=== PATIENT | female | born 1975 | race Caucasian/White ===

== ENCOUNTER 2018-04-10 17:59 | Emergency (ER) | payer MEDICAID ==
[2018-04-10] MEDS ORDERED: 0.9 % SODIUM CHLORIDE 1,000 ML BAG IV ONE ×2 (19:14→20:05)
[2018-04-10] MEDS ORDERED: LORAZEPAM 2 MG/ML VIAL IV ONE (19:14)
--- NOTE | 2018-04-10 19:15 | Emergency Department Record ---
Anxiety - General Chief Complaint: Anxiety Stated Complaint: ANXIETY Time Seen by Provider: 04/10/18 19:06 Source: Patient, Family Mode of Arrival: Ambulatory Limitations: No limitations - History of Present Illness Initial Comments: 43 yo female presents after a anxiety attack. She states she is under severe stress with family issues. She has an anxiety attack today. Her heart races, she gets light headed and thinks she could have passed out or had a seizure. This happens some times with anxiety attacks. No injury. Did not bite tongue. She has been on numerous seizure mediations in the past. No other recent changes in her health. Most of her seizures or syncope occur with stress in her life. MD Complaint: Anxiety Onset/Timin -: Minutes(s) Symptoms: Extremity numbness/tingling, Palpitations Place: Home Previous History of Same: Yes Severity: Moderate Quality: Intermittant Improves With: Nothing Associated symptoms: Other - Related Data Allergies/Adverse Reactions: Allergies Allergy/AdvReac Type Severity Reaction Status Date / Time adhesive tape Allergy Intermediate RASH Verified 04/10/18 18:11 divalproex sodium Allergy Intermediate HYPERSENSIT Verified 04/10/18 18:11 [From Depakote] IVITY phenytoin sodium Allergy Intermediate HIVES Verified 04/10/18 18:11 [From Dilantin] phenytoin sodium extended Allergy Intermediate HIVES Verified 04/10/18 18:11 [From Dilantin] Travel Screening - Travel/Exposure Within Last 30 Days Have you traveled within the last 30 days?: No - Travel/Exposure Within Last Year Have you traveled outside the [place] in the last year?: No - Additonal Travel Details Have you been exposed to anyone with a communicable illness?: No - Travel Symptoms Symptom Screening: None Review of Systems Constitutional: Denies: Chills, Fever, Night sweats, Weakness Eyes: Denies: Eye discharge ENT: Denies: Congestion, Throat pain Respiratory: Denies: Cough, Dyspnea, Hemoptysis, Wheezes Cardiovascular: Reports: Syncope. Denies: Chest pain, Palpitations Endocrine: Denies: Fatigue, Polydipsia, Polyuria Gastrointestinal: Denies: Abdominal pain, Diarrhea, Nausea, Vomiting Genitourinary: Denies: Dysuria, Urgency Musculoskeletal: Denies: Arthralgia, Back pain, Joint swelling, Myalgia, Neck pain Skin: Denies: Bruising, Change in color, Rash Neurological: Reports: As per HPI, Seizure. Denies: Headache, Numbness, Vertigo , Weakness Psychiatric: Reports: As per HPI, Anxiety Hematological/Lymphatic: Denies: Blood Clots, Easy bleeding, Easy bruising, Swollen glands Past Medical History - SOCIAL HISTORY Smoking Status: Light tobacco smoker (<10/day) Alcohol Use: None Drug Use: None - RESPIRATORY Hx Respiratory Disorders: No - CARDIOVASCULAR Hx Cardio Disorders: Yes Hx Hypertension: Yes - NEURO Hx Neuro Disorders: Yes Hx Dizziness: Yes Hx Headaches: Yes Hx Seizures: Yes (Petit-mal) Comment:: chronic siezures - GI Hx GI Disorders: No - Hx Genitourinary Disorders: No Comment:: hysterectomy 2008 ?renal failure - ENDOCRINE Hx Endocrine Disorders: No Hx Diabetes: No Hx Thyroid Disease: No - MUSCULOSKELETAL Hx Musculoskeletal Disorders: Yes Hx Arthritis: Yes Comment:: "messed up both shoulders and her back" - PSYCH Hx Psych Problems: Yes Hx Anxiety: Yes Hx Depression: Yes - HEMATOLOGY/ONCOLOGY Hx Hematology/Oncology Disorders: Yes Hx Blood Transfusions: Yes Hx Blood Transfusion Reaction: No Comment:: After hysterectomy Family Medical History Any Significant Family History?: Yes Hx Alcohol Use: Father, Grandparents Hx Cancer: Father Hx Diabetes: Father Hx Heart Disease: Father Hx HTN: Father Hx Kidney Disease: Grandparents Hx Resp Disorders: Mother Physical Exam - General General Appearance: Alert, Oriented x3, Cooperative, No acute distress, Other ( calm, conversational) Limitations: No limitations - Head Head exam: Normal inspection - Eye Eye exam: Normal appearance, PERRL, EOMI. negative: Conjunctival injection, Scleral icterus - ENT ENT exam: Normal exam, Mucous membranes moist Ear exam: Normal external inspection Nasal Exam: Normal inspection Mouth exam: Normal external inspection, Tongue normal. negative: Laceration Teeth exam: Normal inspection - Neck Neck exam: Normal inspection, Full ROM. negative: Tenderness - Respiratory Respiratory exam: Normal lung sounds bilaterally. negative: Respiratory distress - Cardiovascular Cardiovascular Exam: Regular rate, Normal rhythm, Normal heart sounds Peripheral Pulses: 2+: Radial (R), Radial (L) - GI/Abdominal GI/Abdominal exam: Soft. negative: Tenderness - Rectal Rectal exam: Deferred - exam: Deferred - Extremities Extremities exam: Normal inspection, Full ROM, Normal capillary refill. negative: Tenderness - Back Back exam: Denies: CVA tenderness (R), CVA tenderness (L) - Neurological Neurological exam: Alert, Normal gait, Oriented X3. negative: Altered - Psychiatric Psychiatric exam: Normal affect, Normal mood. negative: Agitated, Anxious, Depressed, Flat affect, Homicidal ideation, Suicidal ideation - Skin Skin exam: Dry, Intact, Normal color, Warm Course Vital Signs 04/10/18 18:02 Temperature 99.1 F Pulse Rate 116 H Respiratory 18 Rate Blood Pressure 121/89 Pulse Ox 95 - Reevaluation(s) Reevaluation #1: The labs were reviewed The CBC demonstrated WBC of 13 The K is 3.3 The HCO3 is 16 BUN is 29 She is doing well, IVF infusing She will be given K and 2 liters of fluids based on the labs EKG #1: 1941 Rate: 82 Rhythm: NSR Morrill: Normal Intervals: Normal ST segments: No acut changes Prior: No changes 02/25/17 04/10/18 21:20 The patient is doing very well after the second liter of IVF. We have discussed at length her anxiety and a follow up plan for mental health care She will be referred to the [facility] Behavioral health team Medical Decision Making - Lab Data Result diagrams: 04/10/18 17:46 04/10/18 17:46 Disposition Disposition: Discharge Clinical Impression: Anxiety, Hypokalemia Disposition: Home, Self-Care Condition: (1) Good Instructions: Generalized Anxiety Disorder (ED) Additional Instructions: Call the number provided for social work follow up Return if you have any concerns prior to follow up for anxiety Referrals: Ratna Castillo [email or web address] [Retouching Operator] - Forms: Patient Portal Access Time of Disposition: 21:24 Quality - Quality Measures Quality Measures: N/A - Blood Pressure Screening Does Patient Have Any of the Following: No Blood Pressure Classification: Pre-Hypertensive BP Reading Systolic Measurement: 121 Diastolic Measurement: 89 Screening for High Blood Pressure: < Pre-Hypertensive BP, F/U Documented > [ G8950] Pre-Hypertensive Follow-up Interventions: Referral to alternative/primary care provider.
[2018-04-10 19:22] LABS: BASO % 0.4 % (0-6); EOS % 2.9 % (0-6); GRAN % 46.6 % (47-80); HEMATOCRIT 40.3 % (35.0-47.0); HEMOGLOBIN 14.1 gm/dl (11.6-16.0); LYMPH % 45.2 % (16-45); MEAN CELL VOLUME 86.9 fl (81-97); MEAN CORPUSCULAR HEMOGLOBIN 30.4 pg (27-33); MEAN PLATELET VOLUME 11.6 fl (7.4-10.4); MONO % 4.9 % (0-9); PLATELET COUNT 268 K/uL (130-400); RED BLOOD COUNT 4.64 M/uL (3.80-5.40); RED CELL DISTRIBUTION WIDTH 14.4 % (11.5-14.5); WHITE BLOOD COUNT W/O DIFF 13.5 K/uL (4.2-12.2)
[2018-04-10 19:32] LABS: BILIRUBIN,TOTAL 0.2 mg/dL (0.2-1.0); CREATININE 1.2 mg/dL (0.5-0.9)
[2018-04-10 19:33] LABS: TOTAL PROTEIN 7.8 g/dL (6.6-8.7)
[2018-04-10 19:38] LABS: ALB/GLOB RATIO 1.4 (1.1-1.8); ALBUMIN 4.6 g/dL (4.0-5.0)
[2018-04-10] MEDS ORDERED: POTASSIUM CHLORIDE 20 MEQ TABLET PO ONE (20:04)
== END 2018-04-10 21:42 | disposition home or self-care (01) ==
LOC: ER 17:59
DX: F41.0 Panic disorder [episodic paroxysmal anxiety] (principal); E87.6 Hypokalemia; R20.0 Anesthesia of skin; R00.2 Palpitations; I10 Essential (primary) hypertension; F17.210 Nicotine dependence, cigarettes, uncomplicated
CPT/HCPCS: 80053; 84703; 85025; 93005; 93010; 96361; 96374; 99284; J7030

== ENCOUNTER 2018-11-16 23:13 | Emergency (ER) | payer MEDICARE, MEDICAID ==
[2018-11-16] MEDS ORDERED: LORAZEPAM 2 MG/ML VIAL IV ONE (23:26)
[2018-11-16] MEDS ORDERED: 0.9 % SODIUM CHLORIDE 1,000 ML BAG IV ONE ×2 (23:26→23:50)
--- NOTE | 2018-11-16 23:27 | Emergency Department Record ---
History of Present Illness - General Chief Complaint: Seizures Stated Complaint: SEIZURE Time Seen by Provider: 11/16/18 23:15 Source: Patient, Family Mode of Arrival: EMS Limitations: No limitations - History of Present Illness Initial Comments: The patient is here due to having her typical petit mal seizures about 1 hour ago at home. They were witnessed by a family member who called 911. The patient has a long hx of seizures similar to this and recently ran out of her typical seizure medicine which was Oxtellar 4 days ago. She did restart Topamax which she was on prior to the Oxtellar. The patient did not fall or hurt herself during the seizure and had no tongue biting or incontinence. Additionally the patient has been under a lot of stress at home which sometimes does precipitate her seizures. MD Complaint: Possible seizure Onset/Timin -: Hour(s) Witnessed: Yes - by bystander Seizure History: Known seizure disorder Place: Home Possible Precipitating Event: Stress Associated Symptoms: Denies other symptoms Treatments Prior to Arrival: None - Related Data Home Medications Medication Instructions Recorded Confirmed Last Taken Atorvastatin Calcium 40 mg PO QHS 11/16/18 11/16/18 Unknown Cholecalciferol (Vitamin D3) 5,000 unit PO DAILY 11/16/18 11/16/18 Unknown [Vitamin D3] Fentanyl 12 mcg TD Q72HR 11/16/18 11/16/18 Unknown Fentanyl 50 mcg TD Q72HR 11/16/18 11/16/18 Unknown Ibuprofen [Ibu] 800 mg PO Q8H PRN 11/16/18 11/16/18 Unknown Oxcarbazepine [Oxtellar Xr] 300 mg PO DAILY 11/16/18 11/16/18 Unknown Trazodone HCl 100 mg PO DAILY 11/16/18 11/16/18 Unknown Allergies Allergy/AdvReac Type Severity Reaction Status Date / Time adhesive tape Allergy Intermediate RASH Verified 04/10/18 18:11 divalproex sodium Allergy Intermediate HYPERSENSIT Verified 04/10/18 18:11 [From Depakote] IVITY phenytoin sodium Allergy Intermediate HIVES Verified 04/10/18 18:11 [From Dilantin] phenytoin sodium extended Allergy Intermediate HIVES Verified 04/10/18 18:11 [From Dilantin] Travel Screening - Travel/Exposure Within Last 30 Days Have you traveled within the last 30 days?: No - Travel Symptoms Symptom Screening: None Review of Systems Constitutional: Denies: Chills, Fever Eyes: Denies: Eye discharge ENT: Denies: Congestion Respiratory: Denies: Cough, Dyspnea Cardiovascular: Denies: Arrhythmia Endocrine: Denies: Fatigue Gastrointestinal: Denies: Abdominal pain, Nausea Genitourinary: Denies: Dysuria Musculoskeletal: Denies: Arthralgia Skin: Denies: Bruising Past Medical History - SOCIAL HISTORY Smoking Status: Light tobacco smoker (<10/day) - RESPIRATORY Hx Respiratory Disorders: No - CARDIOVASCULAR Hx Cardio Disorders: Yes Hx Hypertension: Yes - NEURO Hx Neuro Disorders: Yes Hx Dizziness: Yes Hx Headaches: Yes Hx Seizures: Yes (Petit-mal) Comment:: chronic siezures - GI Hx GI Disorders: No - Hx Genitourinary Disorders: No Comment:: hysterectomy 2008 ?renal failure - ENDOCRINE Hx Endocrine Disorders: No Hx Diabetes: No Hx Thyroid Disease: No - MUSCULOSKELETAL Hx Musculoskeletal Disorders: Yes Hx Arthritis: Yes Comment:: "messed up both shoulders and her back" - PSYCH Hx Psych Problems: Yes Hx Anxiety: Yes Hx Depression: Yes - HEMATOLOGY/ONCOLOGY Hx Hematology/Oncology Disorders: Yes Hx Blood Transfusions: Yes Hx Blood Transfusion Reaction: No Comment:: After hysterectomy Family Medical History Any Significant Family History?: Yes Hx Alcohol Use: Father, Grandparents Hx Cancer: Father Hx Diabetes: Father Hx Heart Disease: Father Hx HTN: Father Hx Kidney Disease: Grandparents Hx Resp Disorders: Mother Physical Exam - General General Appearance: Alert, Oriented x3, Cooperative, No acute distress - Head Head exam: Atraumatic, Normocephalic, Normal inspection - Eye Eye exam: Normal appearance, PERRL, EOMI - ENT Mouth exam: Tongue normal Throat exam: Normal inspection. negative: Tonsillar erythema, Tonsillar exudate - Neck Neck exam: Normal inspection, Full ROM. negative: Lymphadenopathy, Meningismus , Tenderness - Respiratory Respiratory exam: Normal lung sounds bilaterally. negative: Respiratory distress - Cardiovascular Cardiovascular Exam: Regular rate, Normal rhythm, Normal heart sounds, Tachycardia - GI/Abdominal GI/Abdominal exam: Soft, Normal bowel sounds. negative: Tenderness - Extremities Extremities exam: Normal inspection, Full ROM, Normal capillary refill. negative: Tenderness - Neurological Neurological exam: Alert. negative: Altered, Motor sensory deficit Course Vital Signs 11/16/18 23:21 Temperature 98.6 F Pulse Rate [ 130 H Instructional Support Specialist ] Respiratory 22 Rate Blood Pressure 134/81 [Left Arm] Pulse Ox 96 - Reevaluation(s) Reevaluation #1: The patient is doing very well at this time. She is calm and comfortable and her HR has decreased to 100 bpm. There has been no further seizure activity and she does not feel anxious. I did discuss the lab work with the patient and the need for a 2nd liter of IVF. 11/17/18 00:22 Reevaluation #2: The patient is doing very well at this time. She is up ambulating normally and is on her 2nd liter of IVF. She also has drank 2 16 once cups of juice. 11/17/18 00:53 Reevaluation #3: The patient is doing very well at this time. She is drinking fluids well and is up walking with no difficulty. The patient denies any pain or anxiety and feels ready for home. She is to obtain her seizure medicines which are ready for her in a pharmacy in [place]. We will sql analyst her one dose of Ativan for home to take in the morning. 11/17/18 01:14 Medical Decision Making - Data Complexity MDM Data: Labs Ordered and/or Reviewed, EKG Ordered and/or Reviewed - Lab Data Result diagrams: 11/16/18 23:25 11/16/18 23:25 Lab Results 11/16/18 Range/Units 23:23 Salicylates Cancelled Acetaminophen Cancelled - EKG Data -: EKG Interpreted by Me EKG: No Acute Changes (Sinus tach at 119. Neg ST-T changes.) Disposition Disposition: Discharge Clinical Impression: Seizure disorder Disposition: Home, Self-Care Condition: (2) Stable Instructions: Recurrent Seizures in Adults (ED) Additional Instructions: Please take the Ativan in the morning and please obtain your regular medicines that are ready for you in [place]. Please see your family doctor next week for recheck and to have your electrolytes and kidney function tests rechecked. Return to the ER for any worsening symptoms. Forms: Patient Portal Access Time of Disposition: 01:17 Quality - Quality Measures Quality Measures: N/A - Blood Pressure Screening View Details: Yes Does Patient Have Any of the Following: No Blood Pressure Classification: Normal BP Reading Systolic Measurement: 118 Diastolic Measurement: 68 Screening for High Blood Pressure: < Normal BP, F/U Not Required > [G8783]
[2018-11-16 23:30] LABS: BASO % 0.4 % (0-6); EOS % 0.4 % (0-6); GRAN % 61.8 % (47-80); HEMATOCRIT 41.4 % (35.0-47.0); HEMOGLOBIN 14.1 gm/dl (11.6-16.0); LYMPH % 31.4 % (16-45); MEAN CELL VOLUME 88.7 fl (81-97); MEAN CORPUSCULAR HEMOGLOBIN 30.2 pg (27-33); MEAN CORPUSCULAR HGB CONC 34.1 g/dl (32-36); MEAN PLATELET VOLUME 10.1 fl (7.4-10.4); PLATELET COUNT 302 K/uL (130-400); RED BLOOD COUNT 4.67 M/uL (3.80-5.40); WHITE BLOOD COUNT W/O DIFF 16.5 K/uL (4.2-12.2)
[2018-11-16 23:43] LABS: BLOOD UREA NITROGEN 24 mg/dL (6-20); CREATININE 1.4 mg/dL (0.5-0.9); EST GLOMERULAR FILTRATION RATE 44 mL/min
[2018-11-16 23:44] LABS: TOTAL PROTEIN 8.4 g/dL (6.6-8.7)
[2018-11-16 23:46] LABS: GLUCOSE,RANDOM 156 mg/dL (74-109)
[2018-11-16 23:49] LABS: ACETAMINOPHEN 11.8 ug/mL (10.0-30.0); ALB/GLOB RATIO 1.3 (1.1-1.8); ALBUMIN 4.8 g/dL (4.0-5.0); ALKALINE PHOSPHATASE 77 U/L (45-87); ALT/SGPT 10 U/L (<33); AST/SGOT 10 U/L (10.0-35.0); SALICYLATE < 0.3 mg/dL (2.8-20)
[2018-11-16] MEDS ORDERED: POTASSIUM CHLORIDE 20 MEQ TABLET PO ONE (23:58)
[2018-11-17 01:06] LABS: URINE BILIRUBIN NEGATIVE (NEGATIVE); URINE BLOOD NEGATIVE (NEGATIVE); URINE GLUCOSE (UA) NEGATIVE (NEGATIVE); URINE KETONE NEGATIVE (NEGATIVE); URINE LEUKOCYTE ESTERASE NEGATIVE (NEGATIVE); URINE NITRITE NEGATIVE (NEGATIVE); URINE PROTEIN TRACE (NEGATIVE); URINE UROBILINOGEN 0.2 E.U./dL (0.20 - 1.00)
[2018-11-17 01:10] LABS: AMPHETAMINE SCREEN URINE NOT DETECTED; BARBITURATE SCREEN URINE NOT DETECTED; BENZODIAZEPINE SCREEN URINE NOT DETECTED; COCAINE SCREEN URINE NOT DETECTED; METHADONE SCREEN URINE NOT DETECTED; METHAMPHETAMINE SCREEN NOT DETECTED; OPIATE SCREEN URINE DETECTED; OXYCODONE SCREEN URINE DETECTED; PHENCYCLIDINE SCREEN URINE NOT DETECTED; PROPOXYPHENE SCREEN URINE NOT DETECTED; THC SCREEN URINE DETECTED; TRICYCLIC ANTIDEPRESSANT SCRN NOT DETECTED
[2018-11-17 01:11] LABS: URINE APPEARANCE CLEAR; URINE COLOR YELLOW
[2018-11-17] MEDS ORDERED: LORAZEPAM 0.5 MG TABLET PO ONE (01:15)
== END 2018-11-17 01:26 | disposition home or self-care (01) ==
LOC: ER 23:13
DX: G40.409 Other generalized epilepsy and epileptic syndromes, not intractable, without status epilepticus (principal); R00.0 Tachycardia, unspecified; I10 Essential (primary) hypertension; F17.210 Nicotine dependence, cigarettes, uncomplicated
CPT/HCPCS: 99284 ×2; 96374; 96361; 85025; 80053; 81003; 80305; 93005; 93010; G0480 ×2; J2060; 80329; J7030

== ENCOUNTER 2019-03-22 19:15 | Emergency (ER) | payer MEDICARE, MEDICAID ==
[2019-03-22] MEDS ORDERED: LORAZEPAM 2 MG/ML VIAL IV ONE (19:19)
--- NOTE | 2019-03-22 19:24 | Emergency Department Record ---
History of Present Illness - General Stated Complaint: SEIZURE Time Seen by Provider: 03/22/19 19:18 Source: Patient, EMS Mode of Arrival: EMS Limitations: No limitations - History of Present Illness Initial Comments: 43 yo female with a known history of seizures presents to ED for evaluation of a witnessed seizure just prior to arrival. Patient reports that she has been ill with "the flu" over the past several days, reports productive cough symptoms. Patient reports recent fever symptoms, denies abdominal pain or urinary symptoms. Patient denies injury other than abrasion to the left neck resulting from her seizure. MD Complaint: Seizure Onset/Timin -: Minutes(s) Witnessed: Yes - by bystander Trauma: No Seizure History: Known seizure disorder Place: Home Possible Precipitating Event: Fever Associated Symptoms: Cough - Flori Coma Scale Eye Response: (4) Open spontaneously Motor Response: (6) Obeys commands Verbal Response: (5) Oriented [place] Total: 15 - Related Data Home Medications Medication Instructions Recorded Confirmed Last Taken Aspirin 81 mg PO DAILY 03/22/19 03/22/19 Unknown Buspirone HCl [Buspar] 15 mg PO BID 03/22/19 03/22/19 Unknown Oxcarbazepine [Oxtellar Xr] 150 mg PO QPM 03/22/19 03/22/19 Unknown Previous Rx's Medication Instructions Recorded Doxycycline Hyclate 100 mg PO BID #18 cap 03/22/19 Allergies Allergy/AdvReac Type Severity Reaction Status Date / Time adhesive tape Allergy Intermediate RASH Verified 04/10/18 18:11 divalproex sodium Allergy Intermediate HYPERSENSIT Verified 04/10/18 18:11 [From Depakote] IVITY phenytoin sodium Allergy Intermediate HIVES Verified 04/10/18 18:11 [From Dilantin] phenytoin sodium extended Allergy Intermediate HIVES Verified 04/10/18 18:11 [From Dilantin] Review of Systems Constitutional: Reports: Fever. Denies: Chills, Malaise, Night sweats Eyes: Denies: Eye discharge, Eye pain ENT: Denies: Congestion, Ear pain, Epistaxis Respiratory: Reports: Cough. Denies: Dyspnea Cardiovascular: Denies: Chest pain, Dyspnea on exertion Endocrine: Denies: Fatigue, Heat or cold intolerance Gastrointestinal: Denies: Abdominal pain, Nausea Genitourinary: Denies: Discharge, Incontinence, Retention Musculoskeletal: Denies: Arthralgia, Back pain Skin: Denies: Bruising, Change in color Neurological: Reports: Seizure. Denies: Abnormal gait, Confusion, Headache Psychiatric: Denies: Anxiety Hematological/Lymphatic: Denies: Anemia, Blood Clots Past Medical History - SOCIAL HISTORY Smoking Status: Light tobacco smoker (<10/day) - RESPIRATORY Hx Respiratory Disorders: No - CARDIOVASCULAR Hx Cardio Disorders: Yes Hx Hypertension: Yes - NEURO Hx Neuro Disorders: Yes Hx Dizziness: Yes Hx Headaches: Yes Hx Seizures: Yes (Petit-mal) Comment:: chronic siezures - GI Hx GI Disorders: No - Hx Genitourinary Disorders: No Comment:: hysterectomy 2008 ?renal failure - ENDOCRINE Hx Endocrine Disorders: No Hx Diabetes: No Hx Thyroid Disease: No - MUSCULOSKELETAL Hx Musculoskeletal Disorders: Yes Hx Arthritis: Yes Comment:: "messed up both shoulders and her back" - PSYCH Hx Psych Problems: Yes Hx Anxiety: Yes Hx Depression: Yes - HEMATOLOGY/ONCOLOGY Hx Hematology/Oncology Disorders: Yes Hx Blood Transfusions: Yes Hx Blood Transfusion Reaction: No Comment:: After hysterectomy Family Medical History Hx Alcohol Use: Father, Grandparents Hx Cancer: Father Hx Diabetes: Father Hx Heart Disease: Father Hx HTN: Father Hx Kidney Disease: Grandparents Hx Resp Disorders: Mother Physical Exam - General General Appearance: Alert, Oriented x3, Cooperative, Mild distress Limitations: No limitations - Head Head exam: Atraumatic, Normocephalic, Normal inspection Head exam detail: negative: Abrasion, Contusion, Garcia's sign, General tend erness, Hematoma, Laceration - Eye Eye exam: Normal appearance. negative: Conjunctival injection, Periorbital swelling, Periorbital tenderness, Scleral icterus - ENT Ear exam: negative: Auricular hematoma, Auricular trauma Nasal Exam: negative: Active bleeding, Discharge, Dried blood, Foreign body Mouth exam: negative: Drooling, Laceration, Muffled voice, Tongue elevation - Neck Neck exam: Other (Abrasion to the left neck on examination). negative: Meningismus, Tenderness - Respiratory Respiratory exam: Rhonchi, Other (Rhonchi R>L). negative: Rales, Respiratory distress, Stridor - Cardiovascular Cardiovascular Exam: Normal rhythm, Normal heart sounds, Tachycardia - GI/Abdominal GI/Abdominal exam: Soft. negative: Rebound, Rigid, Tenderness - Rectal Rectal exam: Deferred - exam: Deferred - Extremities Extremities exam: Normal inspection. negative: Pedal edema, Tenderness - Back Back exam: Denies: CVA tenderness (R), CVA tenderness (L) - Neurological Neurological exam: Alert, Normal gait, Oriented X3 - Psychiatric Psychiatric exam: Normal affect, Normal mood - Skin Skin exam: Normal color. negative: Abrasion Type of lesion: negative: abrasion Course Vital Signs 03/22/19 19:18 Temperature 98.8 F Pulse Rate [ 130 H Bilateral] Respiratory 24 Rate Blood Pressure 172/125 [Left Arm] Pulse Ox 89 L - Reevaluation(s) Reevaluation #1: 03/22/19 19:52 Patient was seen and examined: Patient has no meningeal signs on examination, known seizure history. LP is not felt to be necessary given cough symptoms, low oxygen saturation. Laboratory studies were reviewed and are grossly unremarkable for an acute process except for the following: WBC 18.3 CO2 19 (likely from recent seizure) AG 22 (likely from recent seizure) UA pending at this time. Reevaluation #2: 03/22/19 20:18 Repeat vitals were reviewed: Pulse improved to 116, oxygen saturation 94% on 3 L NC. Reevaluation #3: 03/22/19 20:25 CXR: Possible lesion RLL no seen in lateral view, ? overlying structure Recommend repeat CXR in 4-6 weeks as directed. Patient was updated on all results, reassessed. Patient denies headache, has FROM of the neck on examination without pain symptoms. No clinical evidence for meningitis/encephalitis based on examination. Following discussion with the patient, patient is in agreement with NOT performing LP to exclude meningitis. Following discussion with the patient regarding admission for clinical pneumonia/hypoxia, patient reports that she wants to leave AMA at this time. Risks of , permanent impairment, or worsening of her current condition were discussed as well as the benefit of admission for further evaluation of their presenting symptoms. Patient verbalizes understanding of all risks and benefits, desires to leave AMA despite these risks. Based on my examination, the patient is alert, oriented, and answers all questions appropriately. Patient appears to have the capacity to make rational decisions based on my examination. Patient was encouraged to return to the ED immediately if she changes her mind about treatment and would like to be re-evaluated. Medical Decision Making - Lab Data Result diagrams: 03/22/19 19:05 03/22/19 19:05 Disposition Disposition: Other (AMA) Clinical Impression: Hypoxia Pneumonia Qualifiers: Pneumonia type: due to unspecified organism Laterality: right Lung location: lower lobe of lung Qualified Code(s): J18.1 - Lobar pneumonia, unspecified organism Disposition: Against Medical Advice Condition: (2) Stable Instructions: Community Acquired Pneumonia (ED) Additional Instructions: Return to ED if your symptoms worsen or if you have any concerns. Doxycycline as directed. Follow-up with your family doctor in 1-3 days as directed. Prescriptions: Doxycycline Hyclate 100 mg PO BID #18 cap Forms: Patient Portal Access Time of Disposition: 20:32 Quality - Quality Measures Quality Measures: N/A - Blood Pressure Screening Does Patient Have Any of the Following: No Blood Pressure Classification: Hypertensive Reading Systolic Measurement: 159 Diastolic Measurement: 101 Screening for High Blood Pressure: < First Hypertensive BP, F/U Documented > [G8950] First Hypertensive Follow-up Interventions: Referral to alternative/primary care provider.
[2019-03-22 19:26] LABS: ABSOLUTE NEUTROPHIL COUNT 10.69; HEMATOCRIT 42.9 % (35.0-47.0); HEMOGLOBIN 14.6 gm/dl (11.6-16.0); MEAN CELL VOLUME 89.4 fl (81-97); MEAN CORPUSCULAR HEMOGLOBIN 30.4 pg (27-33); MEAN PLATELET VOLUME 9.4 fl (7.4-10.4); PLATELET COUNT 363 K/uL (130-400); RED CELL DISTRIBUTION WIDTH 13.8 % (11.5-14.5); WHITE BLOOD COUNT W/O DIFF 18.3 K/uL (4.2-12.2)
[2019-03-22] MEDS ORDERED: 0.9 % SODIUM CHLORIDE 1000ML 1,000 ML IV SCH (19:30)
[2019-03-22 19:39] LABS: BLOOD UREA NITROGEN 13 mg/dL (6-20); EST GLOMERULAR FILTRATION RATE > 60 mL/min
[2019-03-22 19:41] LABS: GLUCOSE,RANDOM 121 mg/dL (74-109)
[2019-03-22 19:44] LABS: ALB/GLOB RATIO 1.4 (1.1-1.8); ALBUMIN 4.7 g/dL (4.0-5.0); ALKALINE PHOSPHATASE 94 U/L (35-104); ALT/SGPT 17 U/L (<33); AST/SGOT 18 U/L (10.0-35.0)
[2019-03-22] MEDS ORDERED: AZITHROMYCIN 500 MG TABLET PO ONE (20:26)
[2019-03-22] MEDS ORDERED: CEFTRIAXONE 1GM/50ML BAG 1 GM/50 ML BAG IVPB ONE (20:33)
--- NOTE | 2019-03-25 11:13 | RADIOLOGY REPORT ---
DATE: 03/22/2019 at 7:50 p.m. EXAM: TWO-VIEW CHEST. HISTORY: COUGH AND FEVER. TECHNIQUE: PA and lateral views. COMPARISON: Portable chest dated 01/27/2016. FINDINGS: Heart size within normal limits. Mild thoracic curve to the right. Old fracture deformity posteriorly in the left ninth rib. No definite acute infiltrate seen. No pleural effusion or pneumothorax is evident. There is a nodular density overlying the left base along the left fifth anterior intercostal space. This is not well seen on the prior study and may just be due to overlapping structures. Follow-up PA and bilateral oblique views suggested. IMPRESSION: 1. OLD LEFT NINTH RIB FRACTURE AND THORACIC CURVE TO THE RIGHT. 2. NO ACUTE INFILTRATE EVIDENT. 3. NODULAR DENSITY LEFT BASE MAY JUST BE OVERLAPPING STRUCTURES. RECOMMENDED FOLLOW-UP FILMS DESCRIBED ABOVE. Job Number: [id number] MTDD
== END 2019-03-22 21:09 | disposition left against medical advice (07) ==
LOC: ER 19:15
DX: J18.1 Lobar pneumonia, unspecified organism (principal); R09.02 Hypoxemia; G40.909 Epilepsy, unspecified, not intractable, without status epilepticus; I10 Essential (primary) hypertension; F17.210 Nicotine dependence, cigarettes, uncomplicated
CPT/HCPCS: 71046; 80053; 85027; 96365; 96375; 99284; J0696; J7030